=== PATIENT | female | born 2000 ===

== ENCOUNTER 2022-08-11 12:51 | Inpatient (IN) | payer OTHER ==
[~2022-08-11] VITALS: Ht 157.5 cm; Wt 57.6 kg
[2022-08-29] MEDS ORDERED: PRENATAL TABLE1 EAC1 PO (04:17)
[2022-08-29] MEDS ORDERED: FOLIC ACID0.8 M1 PO (04:18)
== END 2022-08-31 17:12 | disposition home or self-care (01) | DRG 807 ==
LOC: OB/GYN → LDR 08-29 04:06 → OB/GYN 08-29 13:45
PROVIDERS: ADMIT Obstetrics & Gynecology; ATTEND Obstetrics & Gynecology
PROC: 10E0XZZ Delivery of Products of Conception, External Approach (ICD-10-PCS; principal; 2022-08-29)
PROC: 0UQMXZZ Repair Vulva, External Approach (ICD-10-PCS; 2022-08-29)
PROC: 4A1HXCZ Monitoring of Products of Conception, Cardiac Rate, External Approach (ICD-10-PCS; 2022-08-29)
DX: O71.82 Other specified trauma to perineum and vulva (principal); Z37.0 Single live birth; Z3A.39 39 weeks gestation of pregnancy

== ENCOUNTER 2022-08-18 12:23 | Outpatient (CLI) | payer OTHER | END 2022-08-18 12:43 | disposition home or self-care (01) | LOC: NST 12:23 | PROVIDERS: ATTEND Obstetrics & Gynecology Gynecology | DX: Z34.83 Encounter for supervision of other normal pregnancy, third trimester (principal) ==

== ENCOUNTER 2022-08-21 13:00 | Outpatient (CLI) | payer OTHER | END 2022-08-21 15:39 | disposition home or self-care (01) | LOC: NST 13:00 | PROVIDERS: ATTEND Obstetrics & Gynecology Gynecology | DX: Z34.83 Encounter for supervision of other normal pregnancy, third trimester (principal) ==

== ENCOUNTER 2024-01-03 04:36 | Inpatient (IN) | payer OTHER ==
[~2024-01-03] VITALS: Ht 157.5 cm; Wt 55.3 kg
[2024-01-03 04:36] VITALS: BP 105/62
[~2024-01-03 04:36] MED LIST: FOLIC ACID0.8 M1 PO; PRENATAL TABLE1 EAC1 PO
[2024-01-03] MEDS ORDERED: RINGERS SOLUTION,LACTATED 1,000 ML IV SCH (04:45)
[2024-01-03] MEDS ORDERED: AMPICILLIN SODIUM 2,000 MG VIAL IV ONE (04:45)
[2024-01-03 06:30] LABS: HEMATOCRIT 34.8 % (36.0-45.00); MEAN CELL VOLUME 74.4 fL (80.00-100.00); MEAN CORPUSCULAR HEMOGLOBIN 25.6 pg (27.00-32.0); MEAN CORPUSCULAR HGB CONC 34.4 g/dl (32.0-36.0); PLATELET COUNT 139 K/uL (150-450); RED BLOOD COUNT 4.68 M/uL (4.00-6.00); RED CELL DISTRIBUTION WIDTH 15.1 % (11.5-14.5)
[2024-01-03 06:43] LABS: INR < 0.93; PARTIAL THROMBOPLASTIN TIME 24.3 SECONDS (22.0-34.0); PROTHROMBIN TIME 10.1 SECONDS (9.0-11.5)
[2024-01-03 07:12] LABS: ALBUMIN 2.6 gm/dL (3.4-5.0); BILIRUBIN TOTAL 0.41 mg/dL (0.3-1.2); CALCIUM 8.4 mg/dL (8.5-10.1); CREATININE SERUM 0.51 mg/dL (0.55-1.02); GFR 152.23; GLOBULINA 3.8 G/DL (2.4-3.5); POTASSIUM 3.92 mEq/L (3.5-5.1); TOTAL PROTEIN 6.4 gm/dL (6.4-8.2)
[2024-01-03 07:44] VITALS: BP 117/62
[2024-01-03] MEDS ORDERED: AMPICILLIN SODIUM 1,000 MG VIAL IV SCH (09:00)
[2024-01-03] MEDS ORDERED: IBUprofen 400 MG TABLET PO PRN (09:15)
[2024-01-03] MEDS ORDERED: CHLORHEXIDINE GLUCONATE 120 ML BOTTLE TOP SCH (09:15)
[2024-01-03] MEDS ORDERED: OXYTOCIN 1,000 ML IV SCH (09:15)
[2024-01-03 10:53] VITALS: BP 106/67
[2024-01-03 16:14] VITALS: BP 118/64
[2024-01-04 01:26] VITALS: BP 103/63
[2024-01-04 05:16] VITALS: BP 100/65
[2024-01-04 07:01] LABS: HEMATOCRIT 32.3 % (36.0-45.00); HEMOGLOBIN 10.9 g/dL (12.0-15.00); MEAN CELL VOLUME 75.1 fL (80.00-100.00); MEAN CORPUSCULAR HEMOGLOBIN 25.3 pg (27.00-32.0); MEAN CORPUSCULAR HGB CONC 33.8 g/dl (32.0-36.0); RED CELL DISTRIBUTION WIDTH 15.8 % (11.5-14.5)
[2024-01-04 07:14] LABS: PLATELET COUNT 127 K/uL (150-450)
[2024-01-04 13:05] VITALS: BP 117/55
[2024-01-04 16:19] VITALS: BP 110/73
[2024-01-05] VITALS: BP 118/79
[2024-01-05 08:43] VITALS: BP 110/72
== END 2024-01-05 18:20 | DRG 807 ==
LOC: LDR 04:36 → OB/GYN 04:36
PROVIDERS: ADMIT Obstetrics & Gynecology; ATTEND Obstetrics & Gynecology
PROC: 10E0XZZ Delivery of Products of Conception, External Approach (ICD-10-PCS; principal; 2024-01-03)
PROC: 4A1HXCZ Monitoring of Products of Conception, Cardiac Rate, External Approach (ICD-10-PCS; 2024-01-03)
DX: O99.824 Streptococcus B carrier state complicating childbirth (principal); Z37.0 Single live birth; Z3A.38 38 weeks gestation of pregnancy; Z20.822 Contact with and (suspected) exposure to COVID-19